=== PATIENT | female | born 1990 | race Caucasian/White ===

== ENCOUNTER → 2016-07-28 | Outpatient (REF) | payer OTHER ==
[2016-07-28 19:03] LABS: ALBUMIN 4.4 GM/DL (3.2-5.2); ALBUMIN/GLOBULIN RATIO 1.33 (1.00-1.93); ALKALINE PHOSPHATASE 67 U/L (45-117); ALT/SGPT 20 U/L (12-78); ANION GAP 7 MEQ/L (8-16); AST/SGOT 14 U/L (15-37); BILIRUBIN,TOTAL 0.4 MG/DL (0.2-1.0); BLOOD UREA NITROGEN 13 MG/DL (7-18); CALCIUM LEVEL 8.9 MG/DL (8.5-10.1); CARBON DIOXIDE LEVEL 27 MEQ/L (21-32); CHLORIDE LEVEL 105 MEQ/L (98-107); CHOLESTEROL LEVEL 125 MG/DL (<200); CREATININE FOR GFR 0.82 MG/DL (0.55-1.02); FREE T4 0.87 NG/DL (0.76-1.46); GLOMERULAR FILTRATION RATE > 60.0 (>60); GLUCOSE, FASTING 77 MG/DL (70-105); POTASSIUM SERUM 4.5 MEQ/L (3.5-5.1); SODIUM LEVEL 139 MEQ/L (136-145); TOTAL PROTEIN 7.7 GM/DL (6.4-8.2); TRIGLYCERIDES LEVEL 51 MG/DL (<150)
== END ==
LOC: M LAB REF 17:53
PROVIDERS: ATTEND Nurse Practitioner Family
DX: E04.0 Nontoxic diffuse goiter (principal); Z13.29 Encounter for screening for other suspected endocrine disorder; Z13.220 Encounter for screening for lipoid disorders

== ENCOUNTER → 2016-11-23 | Outpatient (CLI) | payer MEDICAID | LOC: M LAB 13:32 | PROVIDERS: ATTEND Advanced Practice Midwife | DX: Z36 Encounter for antenatal screening of mother (principal); Z13.79 Encounter for other screening for genetic and chromosomal anomalies ==

== ENCOUNTER → 2016-11-26 | Outpatient (CLI) | payer MEDICAID ==
--- NOTE | 2016-11-26 13:08 | REP ---
Obstetric ultrasound for anatomy: There is a single intrauterine gestation in a breech presentation. There is motion and cardiac activity. The heart rate is 141 beat per minute. The placenta is anterior and extends into the lower uterine segment. The inferior margin of the placenta is 3.6 cm above the internal cervical os. There is no placenta previa. The cervix measures through 0.6 cm in length. By today's ultrasound the gestational age is 20 weeks 1 day with an ASHLEY of 04/14/2017. The LMP is unknown. weight is 372 grams (0 pounds, 13 ounces). This is the 67th percentile for 20 weeks 1 day. The following anatomic structures are identified and are unremarkable: Intracranial lateral ventricles, cerebellum, cisterna magna, choroid plexus, facial profile, lungs, four-chamber heart, cardiac right and left ventricular outflow tracts, diaphragm, stomach, cord insertion, three-vessel cord, kidneys, bladder and upper lower extremities. Suboptimally demonstrated because of position is the spine. A followup study dedicated to the spine might be considered. Otherwise, there are no anomalies. Signed by Patel Suresh MD 11/26/2016 01:00 P
== END ==
LOC: M SMT 10:03
PROVIDERS: ATTEND Specialist
DX: Z36 Encounter for antenatal screening of mother (principal); Z3A.20 20 weeks gestation of pregnancy

== ENCOUNTER 2016-12-19 15:45 | Emergency (ER) | payer MEDICAID ==
[~2016-12-19] VITALS: Ht 160 cm; Wt 70.9 kg
[2016-12-19] MEDS ORDERED: LIDOCAINE W/EPINEPHRINE 1% 20ML VIAL As Ordered ONE (17:32)
[2016-12-19] MEDS ORDERED: LIDOCAINE W/EPINEPHRINE 1% 20ML VIAL SC ONE (18:15)
[2016-12-19 18:35] VITALS: BP 102/72
== END 2016-12-19 18:36 | disposition home or self-care (01) ==
LOC: M ED 15:45
DX: O9A.212 Injury, poisoning and certain other consequences of external causes complicating pregnancy, second trimester (principal); S61.411A Laceration without foreign body of right hand, initial encounter; Z3A.24 24 weeks gestation of pregnancy; W26.0XXA Contact with knife, initial encounter; Y92.099 Unspecified place in other non-institutional residence as the place of occurrence of the external cause; Y93.89 Activity, other specified; Y99.9 Unspecified external cause status

== ENCOUNTER → 2017-01-15 | Outpatient (CLI) | payer MEDICAID, OTHER ==
--- NOTE | 2017-01-15 14:02 | REP ---
Obstetric sonography: History: Supervision of , followup anatomy. Findings: Scanning through the gravid uterus demonstrates a viable single intrauterine gestation in a cephalic lie. motion is observed and heart rate is recorded at 158 beats per minute. An anterior grade 0 placenta is seen without evidence of previa. Amniotic fluid is subjectively normal. Closed cervical length is 3.7 cm. No extrauterine abnormality is observed. There has been appropriate interval growth. No anomaly is seen. The following anatomic structures are identified and felt to be sonographically unremarkable today: cranium, choroid plexus, cavum, cerebellum and posterior fossa, face and profile, lungs, left ventricular outflow tract view, diaphragm, left-sided stomach, abdominal wall cord insertion, three-vessel umbilical cord, kidneys and bladder, spine, and upper and lower extremities. Biometry chart: BPD 6.9 cm 27 weeks 5 days Head circumference 25.9 cm 28 weeks 1 day Abdominal circumference 23.4 cm 27 weeks 5 days Femur length 5.2 cm 27 weeks 5 days Humeral length 4.9 cm 28 weeks 5 days HC/AC ratio normal 1.11. Cephalic index normal 0.73. Estimated weight 1125 grams, 2 pounds 7 ounces, 54th percentile for 27 weeks 2 days. SD ratio in the umbilical cord artery by Doppler normal 2.84. ALEX normal 15.3 cm. Impression: Viable single intrauterine gestation at 28 weeks 0 days by today's composite sonographic criteria. Expected gestational age estimate based on prior sonography is 27 weeks 2 days. ASHLEY by prior sonography April 14, 2017. In conjunction with the prior study, anatomic survey is felt to be complete. Signed by Tyrone Nicholson MD 01/15/2017 03:02 P
== END ==
LOC: M RAD 12:32
PROVIDERS: ATTEND Advanced Practice Midwife
DX: Z34.83 Encounter for supervision of other normal pregnancy, third trimester (principal)

== ENCOUNTER → 2017-01-25 | Outpatient (CLI) | payer OTHER ==
[2017-01-25 20:05] LABS: BASO # 0.1 10^3/uL (0.0-0.2); BASO % 0.3 % (0.0-1.0); EOS # 0.2 10^3/uL (0.0-0.50); EOS % 1.3 % (0.0-3.0); IMMATURE GRANULOCYTE % 1.4 % (0-0); LYMPH # 2.9 10^3/uL (1.5-6.5); LYMPH % 16.3 % (24.0-44.0); MEAN CORPUSCULAR HEMOGLOBIN 30.2 pg (27.0-33.0); MEAN CORPUSCULAR HGB CONC 33.3 g/dl (32.0-36.5); MEAN CORPUSCULAR VOLUME 90.5 fl (80.0-96.0); MONO % 5.6 % (0.0-5.0); NEUTROPHILS # 13.2 10^3/uL (1.8-7.7); NEUTROPHILS % 75.1 % (36.0-66.0); PLATELET COUNT, AUTOMATED 259 10^3/uL (150-450); RED CELL DISTRIBUTION WIDTH 12.9 % (11.5-14.5); WHITE BLOOD COUNT 17.5 10^3/uL (4.0-10.0)
== END ==
LOC: M SMT 13:23
PROVIDERS: ATTEND Advanced Practice Midwife
DX: Z36 Encounter for antenatal screening of mother (principal)
CPT/HCPCS: 36415; 82950; 85025; 86850; 86900; 86901; J2790

== ENCOUNTER → 2017-03-19 | Outpatient (REF) | payer OTHER | LOC: M LAB REF 17:16 | PROVIDERS: ATTEND Advanced Practice Midwife | DX: Z34.83 Encounter for supervision of other normal pregnancy, third trimester (principal) ==

== ENCOUNTER 2017-04-10 17:40 | Outpatient (CLI) | payer OTHER ==
[~2017-04-10] VITALS: Ht 160 cm; Wt 73.6 kg
[2017-04-10 17:59] VITALS: BP 118/68
[2017-04-10] MEDS ORDERED: RANI15TA PO (18:05)
[2017-04-10] MEDS ORDERED: ZOFR20TA PO (18:05)
[2017-04-10] MEDS ORDERED: ONDANSETRON 4 MG ORAL DISINTEGRATING TAB (S0181) PO PRN (20:00)
== END 2017-04-10 21:15 | disposition home or self-care (01) ==
LOC: M LDO 17:40
PROVIDERS: ATTEND Specialist
DX: O47.1 False labor at or after 37 completed weeks of gestation (principal); Z3A.39 39 weeks gestation of pregnancy; Z88.8 Allergy status to other drugs, medicaments and biological substances

== ENCOUNTER 2017-04-11 05:33 | Inpatient (IN) | payer OTHER ==
[2017-04-11] VITALS (49 sets, daily range): BP systolic 99–150; BP diastolic 56–82
[~2017-04-11] VITALS: Ht 160 cm; Wt 74.0 kg
[~2017-04-11 05:33] MED LIST: RANI15TA PO; ZOFR20TA PO
[2017-04-11] MEDS ORDERED: LACTATED RINGER'S 1000 ML IV STA (06:25)
[2017-04-11] MEDS ORDERED: LR 1,000 ML IV SCH (06:25)
[2017-04-11 06:36] LABS: MEAN CORPUSCULAR HEMOGLOBIN 29.3 pg (27.0-33.0); MEAN CORPUSCULAR HGB CONC 34.5 g/dl (32.0-36.5); MEAN CORPUSCULAR VOLUME 84.8 fl (80.0-96.0); PLATELET COUNT, AUTOMATED 218 10^3/uL (150-450); RED CELL DISTRIBUTION WIDTH 12.6 % (11.5-14.5); WHITE BLOOD COUNT 13.8 10^3/uL (4.0-10.0)
[2017-04-11] MEDS ORDERED: FENTANYL 2MCG/ML ROPIVACAINE 0.2% IN 0.9% NACL 200ML IVBAG As Ordered ONE (07:31)
[2017-04-11] MEDS ORDERED: ONDANSETRON 4MG/2ML VIAL (J2405) IV PRN (09:45)
[2017-04-11] MEDS ORDERED: EPIDURAL/PCA KEYS XX PRN (09:45)
[2017-04-11] MEDS ORDERED: NALOXONE INJ 0.4 MG/1 ML VIAL (J2310) IV PRN (09:45)
[2017-04-11] MEDS ORDERED: FENTANYL/ROPIVACAINE/NACL BAG 200 ML EPIDURAL SCH (09:45)
[2017-04-11] MEDS ORDERED: REFRIGERATOR IV KEYS XX PRN (09:45)
[2017-04-11] MEDS ORDERED: EPIDURAL COMMENT XX SCH (09:45)
[2017-04-11] MEDS ORDERED: diphenhydrAMINE INJ 50MG/ML VIAL (J1200) IV PRN (09:45)
[2017-04-11] MEDS ORDERED: ePHEDrine SULFATE 25 MG/5 ML(5MG/ML) SYRINGE IV PRN (09:45)
[2017-04-11] MEDS ORDERED: LACTATED RINGER'S 1000 ML IV PRN (09:45)
--- NOTE | 2017-04-11 10:20 | HPE ---
DATE OF ADMISSION: 04/11/2017 A 27-year-old G2, P0-0-1-0 female at 39-3/7 weeks' gestation by 6-week ultrasound, estimated date of confinement (EDC) 04/15/2017, presents for having contractions every 3-4 minutes for the last several hours. They increase in intensity. She denies vaginal bleeding or loss of fluid. COURSE: The patient initiated care at 6 weeks' gestation on 08/19/2016. Her first-trimester blood pressure was 118/70. Weight 145 pounds. Her course was unremarkable. MEDICAL HISTORY: Anxiety. SURGICAL HISTORY: None. ALLERGIES: PROZAC, BACTRIM. SOCIAL HISTORY: The patient lives at [place]. The patient denies cigarettes, alcohol, or drug use. FAMILY HISTORY: Noncontributory. PHYSICAL EXAMINATION: Blood pressure 118/74. She appears uncomfortable. HEAD AND NECK EXAMINATION: Normal. LUNGS: Clear. HEART: Regular rate and rhythm. ABDOMEN: Nontender, gravid. heart tones category 1. STERILE VAGINAL EXAMINATION: 4 cm, 100%, -2 station, vertex, soft, contractions every 3-4 minutes. EXTREMITIES: Nontender. LABORATORIES: Blood type is O negative, rubella immune, rapid plasma reagin (RPR) nonreactive. Hepatitis B and C negative. HIV negative. Group B streptococcus (GBS) negative on 03/19/2017. ASSESSMENT: A 27-year-old G2, P0-0-1-0 female at 39-3/7 weeks' gestation presents in labor. The patient is admitted on 04/11/2017.
[2017-04-11] MEDS ORDERED: OXYTOCIN 30 UNITS IN 0.9% NaCl 500ML IV BAG (J2590) As Ordered ONE (13:45)
[2017-04-11] MEDS ORDERED: OXYTOCIN DRIP 30 UNITS in APPROPRIATE DILUENT 1 EA IV SCH (14:53)
[2017-04-11] MEDS ORDERED: DIBUCAINE 1% OINTMENT 30GM TOP PRN (15:00)
[2017-04-11] MEDS ORDERED: ANUSOL HC CREAM 30GM TOP PRN (15:00)
[2017-04-11] MEDS ORDERED: METHYLERGONOVINE MALEATE 0.2 MG TAB PO PRN (15:00)
[2017-04-11] MEDS ORDERED: RHOGAM 300 MCG (1500 IU) INJ (J2790) IM SCH (15:00)
[2017-04-11] MEDS ORDERED: MOM 30ML SUSPENSION UDC PO PRN (15:00)
[2017-04-11] MEDS ORDERED: IBUPROFEN 800 MG TAB PO PRN (15:00)
[2017-04-11] MEDS ORDERED: DOCUSATE SODIUM 100 MG CAP PO PRN (15:00)
[2017-04-11] MEDS ORDERED: MEASLES,MUMPS,RUBELLA VACCINE INJ (MMR-II) (90707) SC SCH (15:00)
--- NOTE | 2017-04-11 15:04 | DNPDOC ---
[facility] Delivery Note Delivery Note DATE OF DELIVERY: 04/11/2017 PREDELIVERY DIAGNOSIS: 39-3/7 weeks' gestation and labor. POST DELIVERY DIAGNOSIS: Delivered. PROCEDURE: Spontaneous vaginal delivery. PERFORMANCE TEST ENGINEER: Jacinta De Anda ANESTHESIA: Epidural. ESTIMATED BLOOD LOSS: 100 mL. FINDINGS: 6 pound 0 ounce male infant, Score 9/9, no nuchal cord. DELIVERY SUMMARY: Patient is a 27-year-old 2 now para 1 -0 -1-1 who was admitted to labor and delivery for uterine contractions starting @ 0100. She utilized an epidural for labor coping. Artificial rupture of membranes for moderate meconium-stained fluid at 0928. NICU was notified and requested to attend delivery. Fully dilated, 1348. Viable male delivered JOAO at 1428, suctioned by Dr. Nascimento at delivery for scant amount meconium-stained fluid. Cord doubly clamped and cut and infant went to warmer for further evaluation. Apgars were 9 and 9. Placenta Birch intact with a three-vessel cord at 1432. Marginal cord insertion was noted. Fundus firmed. Bleeding controlled with massage and IV Pitocin bolus. Estimated blood loss 100 mL. Cervix, vagina and perineum inspected. Bilateral labial abrasions were noted and repaired with 3-0 Vicryl Rapide and a small first-degree vaginal laceration was repaired with the same suture. Infant weight 2730 g, 6 lbs. 0 oz. Parents are naming their son El. Sponge, sharp and instrument count were correct at the close of the procedure Jacinta De Anda CNM Apr 11, 2017 15:04
[2017-04-12] MEDS: ACETAMINOPHEN 500 MG TAB PO PRN ×3 (01:42→16:00)
--- NOTE | 2017-04-12 06:45 | IPNPDOC ---
Text Note Date of Service The patient was seen on 04/12/17. NOTE Feels well. . Adequate pain management. Voiding 98.7, 118/75 Breasts soft, nipples intact Fundus firm, NT, down 2 FB Lochia rubra light without odor Perineum well approximated without edema Legs negative A: PPD #1 P: Routine care. Anticipate D/C in am VS,Fishbone, I+O VS, Fishbone, I+O Vital Signs Date Time Temp Pulse Resp B/P (MAP) Pulse Ox O2 Delivery O2 Flow Rate FiO2 04/11/17 18:00 98.7 69 18 118/75 (89) Jacinta De Anda CNM Apr 12, 2017 06:45
[2017-04-12] MEDS: PRENATAL VITAMINS CHEWABLE TABLET PO SCH (08:31)
[2017-04-12 18:00] VITALS: BP 124/77
[2017-04-13 06:17] VITALS: BP 152/75
[2017-04-13] MEDS: PRENATAL VITAMINS CHEWABLE TABLET PO SCH (07:17)
[2017-04-13] MEDS: ACETAMINOPHEN 500 MG TAB PO PRN (07:18)
[2017-04-13] MEDS ORDERED: IBUP-1114 PO (07:52)
[2017-04-13] MEDS ORDERED: PRENTAB9 PO (07:52)
[2017-04-13] MEDS ORDERED: ACET50TA PO (07:52)
== END 2017-04-13 12:45 | disposition home or self-care (01) | DRG 560 ==
LOC: M LDO 05:33 → M LDI 06:16 → M OBS 17:16
PROVIDERS: ADMIT Specialist; ATTEND Specialist
PROC: 10E0XZZ Delivery of Products of Conception, External Approach (ICD-10-PCS; principal; 2017-04-11)
PROC: 10907ZC Drainage of Amniotic Fluid, Therapeutic from Products of Conception, Via Natural or Artificial Opening (ICD-10-PCS; 2017-04-11)
PROC: 0HQ9XZZ Repair Perineum Skin, External Approach (ICD-10-PCS; 2017-04-11)
PROC: 30233S1 Transfusion of Nonautologous Globulin into Peripheral Vein, Percutaneous Approach (ICD-10-PCS; 2017-04-12)
DX: O77.0 Labor and delivery complicated by meconium in amniotic fluid (principal); O70.0 First degree perineal laceration during delivery; Z37.0 Single live birth; Z3A.39 39 weeks gestation of pregnancy; Z88.1 Allergy status to other antibiotic agents; Z88.8 Allergy status to other drugs, medicaments and biological substances

== ENCOUNTER → 2018-09-24 | Outpatient (CLI) | payer OTHER ==
[~2018-09-24] MED LIST changes: +IBUP-1114 PO; +MAPA500T2 PO; +PRENTAB9 PO; -ZOFR20TA PO; +ZOFR4TAB16 PO
[2018-09-24 09:49] LABS: BASO % 0.4 % (0.0-1.0); EOS # 0.2 10^3/uL (0.0-0.50); EOS % 1.8 % (0.0-3.0); HEMATOCRIT 38.1 % (36.0-47.0); HEMOGLOBIN 13.1 g/dl (12.0-15.5); LYMPH # 2.6 10^3/uL (1.5-6.5); LYMPH % 22.9 % (24.0-44.0); MEAN CORPUSCULAR HEMOGLOBIN 30.7 pg (27.0-33.0); MEAN CORPUSCULAR HGB CONC 34.4 g/dl (32.0-36.5); MEAN CORPUSCULAR VOLUME 89.2 fl (80.0-96.0); MONO # 0.6 10^3/uL (0.0-0.8); MONO % 5.3 % (0.0-5.0); NEUTROPHILS # 7.8 10^3/uL (1.8-7.7); NEUTROPHILS % 69.2 % (36.0-66.0); PLATELET COUNT, AUTOMATED 223 10^3/uL (150-450); RED BLOOD COUNT 4.27 10^6/uL (4.00-5.40); WHITE BLOOD COUNT 11.3 10^3/uL (4.0-10.0)
[2018-09-24 12:23] LABS: CHLAMYDIA DNA AMPLIFICATION NEGATIVE (NEGATIVE); GC DNA AMPLIFICATION NEGATIVE (NEGATIVE)
[2018-09-26 09:57] LABS: HIV 1&2 SCREEN CENTAUR NEGATIVE (NEGATIVE); RUBELLA IgG QUALITATIVE IMMUNE (IMMUNE)
== END ==
LOC: M LAB 09:23
PROVIDERS: ATTEND Advanced Practice Midwife
DX: Z34.81 Encounter for supervision of other normal pregnancy, first trimester (principal); Z3A.09 9 weeks gestation of pregnancy

== ENCOUNTER → 2018-09-30 | Outpatient (CLI) | payer OTHER | LOC: M SMT 10:22 | PROVIDERS: ATTEND Obstetrics & Gynecology | DX: Z34.81 Encounter for supervision of other normal pregnancy, first trimester (principal) ==

== ENCOUNTER → 2018-11-08 | Outpatient (CLI) | payer OTHER ==
--- NOTE | 2018-11-08 22:24 | REP ---
Clinical: Anatomical evaluation. Comparison: None . Findings: Examination demonstrates a single live intrauterine in variable presentation. motion is identified by technologist. Placenta is noted posterior and grade zero without evidence for placenta previa or abruption. Amniotic fluid volume is normal. Cervix measures 4.7 cm in length and appears closed. No evidence for nuchal cord. Gestational age by LMP 19 weeks 4-day with ASHLEY 03/31/2019 . Gestational age by current measurements 18 weeks 1 day with ASHLEY 04/10/2019 . FHR equals 149 beats per minute. BPD 3.7 cm 17 weeks 2 days HC 15.1 cm 18 weeks 1 day AC 12.9 cm 18 weeks 3 days FL 2.8 cm 18 weeks 3 days HL 2.7 cm 18 weeks 4-day HC/AC ratio 1.18 Estimated weight at 237 grams ( 55th percentile). Anatomical assessment demonstrates normal structures including cranium, choroid plexus, cavum, cerebellum/posterior fossa, facial features, lungs, four-chamber heart/ventricular outflow tracts, diaphragm, stomach, cord insertion/three-vessel cord, kidneys/bladder, spine, and extremities. Impression: Single live intrauterine in variable presentation demonstrating appropriate interval growth. Anatomical assessment is complete and normal. Electronically Signed by Porter Ortega MD 11/08/2018 10:15 P
== END ==
LOC: M RAD 13:55
PROVIDERS: ATTEND Advanced Practice Midwife
DX: Z34.82 Encounter for supervision of other normal pregnancy, second trimester (principal); Z36.89 Encounter for other specified antenatal screening; Z3A.19 19 weeks gestation of pregnancy

== ENCOUNTER 2018-12-26 19:46 | Emergency (ER) | payer OTHER ==
[~2018-12-26] VITALS: Ht 160 cm; Wt 60.5 kg
[2018-12-27] MEDS ORDERED: NS 1,000 ML IV ONE (00:15)
[2018-12-27] MEDS ORDERED: CLINDAMYCIN 300 MG in APPROPRIATE DILUENT 1 EA IV ONE (00:15)
[2018-12-27] MEDS ORDERED: METOCLOPRAMIDE INJ 10MG/2ML VIAL (J2765) IV ONE (00:15)
[2018-12-27 00:35] LABS: ALBUMIN 3.6 GM/DL (3.2-5.2); ALT/SGPT 15 U/L (12-78); BILIRUBIN,DIRECT 0.2 MG/DL (0.0-0.2); BILIRUBIN,TOTAL 0.7 MG/DL (0.2-1.0); BLOOD UREA NITROGEN 7 MG/DL (7-18); CALCIUM LEVEL 9.3 MG/DL (8.5-10.1); CARBON DIOXIDE LEVEL 27 MEQ/L (21-32); CHLORIDE LEVEL 104 MEQ/L (98-107); CREATININE FOR GFR 0.63 MG/DL (0.55-1.30); GLOMERULAR FILTRATION RATE > 60.0 (>60); GLUCOSE, FASTING 80 MG/DL (70-100); LIPASE 66 U/L (73-393); SODIUM LEVEL 137 MEQ/L (136-145); TOTAL PROTEIN 7.8 GM/DL (6.4-8.2)
[2018-12-27 00:40] LABS: BASO % 0.2 % (0.0-1.0); EOS % 0.2 % (0.0-3.0); HEMATOCRIT 41.6 % (36.0-47.0); HEMOGLOBIN 14.5 g/dl (12.0-15.5); LYMPH # 1.6 10^3/uL (1.5-6.5); LYMPH % 9.5 % (24.0-44.0); MEAN CORPUSCULAR HEMOGLOBIN 30.5 pg (27.0-33.0); MEAN CORPUSCULAR HGB CONC 34.9 g/dl (32.0-36.5); MEAN CORPUSCULAR VOLUME 87.6 fl (80.0-96.0); MONO # 0.9 10^3/uL (0.0-0.8); MONO % 5.3 % (0.0-5.0); NEUTROPHILS # 14.5 10^3/uL (1.8-7.7); NEUTROPHILS % 84.2 % (36.0-66.0); PLATELET COUNT, AUTOMATED 278 10^3/uL (150-450); RED BLOOD COUNT 4.75 10^6/uL (4.00-5.40); WHITE BLOOD COUNT 17.2 10^3/uL (4.0-10.0)
[2018-12-27 02:12] VITALS: BP 118/77
[2018-12-27] MEDS ORDERED: REGL10TA6 PO (02:16)
== END 2018-12-27 02:19 | disposition home or self-care (01) ==
LOC: M ED 19:46
DX: O99.89 Other specified diseases and conditions complicating pregnancy, childbirth and the puerperium (principal); R11.10 Vomiting, unspecified; K04.7 Periapical abscess without sinus; Z3A.26 26 weeks gestation of pregnancy; Z79.899 Other long term (current) drug therapy; Z88.8 Allergy status to other drugs, medicaments and biological substances
CPT/HCPCS: 80048; 80076; 83605; 83690; 85025; 96365; 99284; J2765

== ENCOUNTER → 2019-01-13 | Outpatient (CLI) | payer OTHER ==
[~2019-01-13] MED LIST changes: +REGL10TA6 PO
[2019-01-13 18:05] LABS: HEMATOCRIT 36.6 % (36.0-47.0); HEMOGLOBIN 12.7 g/dl (12.0-15.5); MEAN CORPUSCULAR HEMOGLOBIN 31.4 pg (27.0-33.0); MEAN CORPUSCULAR HGB CONC 34.7 g/dl (32.0-36.5); MEAN CORPUSCULAR VOLUME 90.4 fl (80.0-96.0); PLATELET COUNT, AUTOMATED 262 10^3/uL (150-450); RED BLOOD COUNT 4.05 10^6/uL (4.00-5.40); WHITE BLOOD COUNT 13.8 10^3/uL (4.0-10.0)
== END ==
LOC: M LRY 14:04
PROVIDERS: ATTEND Advanced Practice Midwife
DX: Z34.82 Encounter for supervision of other normal pregnancy, second trimester (principal); Z36.89 Encounter for other specified antenatal screening
CPT/HCPCS: 36415; 82950; 85027; 86850; J2790

== ENCOUNTER → 2019-03-10 | Outpatient (REF) | payer OTHER | LOC: M LAB REF 16:57 | PROVIDERS: ATTEND Advanced Practice Midwife | DX: Z36.89 Encounter for other specified antenatal screening (principal); Z3A.00 Weeks of gestation of pregnancy not specified ==

== ENCOUNTER → 2019-03-22 | Outpatient (CLI) | payer OTHER | LOC: M SMT 09:52 | PROVIDERS: ATTEND Advanced Practice Midwife | DX: Z34.83 Encounter for supervision of other normal pregnancy, third trimester (principal); Z36.89 Encounter for other specified antenatal screening ==

== ENCOUNTER 2019-04-07 18:20 | Inpatient (IN) | payer OTHER ==
[~2019-04-07] VITALS: Ht 160 cm; Wt 71.0 kg
[2019-04-07] MEDS ORDERED: ZANT150T40 PO (18:41)
[2019-04-07] MEDS ORDERED: TUMS750C5 PO (18:41)
[2019-04-07] MEDS ORDERED: LACTATED RINGER'S 1000 ML IV STA (19:00)
[2019-04-07] MEDS ORDERED: miSOPROStol 50 MCG 1/2 TAB (S0191) PO SCH (19:00)
--- NOTE | 2019-04-07 19:14 | HPEPDOC ---
Obstetrical History & Physical General Date of Admission Apr 07, 2019 at 18:20 History of Present Illness Chief Complaint: Induction of labor Information Provided By: Patient Age: 29 : 3 Term: 1 Pre-term: 0 Abortions: 1 Livin Care Care: Good Care Dating Final EDC: Apr 05, 2019 Final EDC by: LMP EGA at Admission: 40 (+2) Antepartum Course Height (inches): 63 Pre- weight (lbs.): 106 Admission Weight (lbs.): 152 Past Medical History Past Obstetrical History : Past Obstetrical History: Primgravida (2017) Type of Delivery: Spontaneous Vaginal Del. 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 Past Medical History Medical History Lichen sclerosus Surgical History: Denies/None Family History Significant Family History: Cancer (:), Hypertension Social History Marital Status: Family situation: Spouse/partner home Psychosocial History: No pertinent psych hx * Smoker: current smoker Alcohol: Denies Drugs: denies Abuse Violence Screening Have you been hit/kicked/slapp: No Have you been sexually assault: No Imunizations Tdap status: current Allergies Coded Allergies: fluoxetine (Verified Allergy, Intermediate, hives, 12/26/18) sulfamethoxazole (Verified Allergy, Unknown, 04/07/19) trimethoprim (Verified Allergy, Unknown, 04/07/19) Medications Scheduled Ranitidine Hcl (Zantac) 150 Mg Tablet, 1 TAB PO BID Scheduled PRN Calcium Carbonate (Tums) 300 Mg Tab.chew, 750 MG PO Q4-6HP PRN for HEARTBURN/INDIGESTION Physical Examination Physical Examination GENERAL: Alert and oriented times three. BREAST: . ABDOMEN: Gravid and non-tender to touch. FETUS: Is vertex (VTX) by sterile vaginal examination (SVE), fetus is vertex (VTX) by Zane. HEART RATE: Regular rate and rhythm. LUNGS: Clear to auscultation (CTA). EXTREMITIES: No edema. No clonus. Deep tendon reflexes (DTRs) + 2. Laboratory Data [facility] Laboratory Tests 2 04/07/19 18:37: Serology Scanned Report Hepatitis B Testing Pertinent Laboratoy Data Blood Type: O- RBC Antibody Screen: Negative HIV: Negative Hepatitis B: Negative Hepatitis C: Negative Rapid Plasma Reagin: Nonreactive Rubella: Immune Chlamydia/Gonorrhea: Negative Group B Streptococcus: Negative Diag/Inter Therapy Panorama low risk female Anatomy Ultrasound Ultrasound Date: Nov 08, 2018 Placenta Location: Posterior Normal Anatomy: Yes Placenta Previa: No Estimated Weight (grams): 237 Other Ultrasounds 09/02/2018, dating 8 weeks 5 days Steroid Therapy Steroid Therapy: No Vaginal Examination Dilation: 1cm Effacement: 50% Station: -3 Cervical Consistency: Medium Cervical Position: Posterior Presentation: Cephalic presentation Assessment Heart Rate (FHR): 125 Variability: Moderate Accelerations: Positive Decelerations: None Tocometer Contractions: No Assessment/Plan Assessment Carissa is a 29-year-old (G) 3 para (P) 1 -0 -1-1 at 40 + 2 weeks by 8-week ultrasound. Presents to Labor and Delivery (L&D), elective induction of labor at term. She denies regular contractions, loss of fluid or bleeding. Fetus is active Plan Admit and orient. 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 Melendrez Diet: Regular. Group B Streptococcus (GBS), negative. Labs and intravenous (IV) per unit protocol. Counseled on misoprostol, Pitocin and induction of labor (IOL). Lactated Ringers (LR): Bolus 500 mL, then saline lock. Patient plans an epidural Anticipate, normal spontaneous vaginal delivery. C-S as appropriate. Jacinta De Anda CNM Apr 07, 2019 19:13
[2019-04-07 19:39] LABS: HEMATOCRIT 34.2 % (36.0-47.0); HEMOGLOBIN 11.4 g/dl (12.0-15.5); MEAN CORPUSCULAR HGB CONC 33.3 g/dl (32.0-36.5); PLATELET COUNT, AUTOMATED 249 10^3/uL (150-450); RED BLOOD COUNT 3.93 10^6/uL (4.00-5.40); WHITE BLOOD COUNT 14.8 10^3/uL (4.0-10.0)
[2019-04-07 19:43] VITALS: BP 117/69
[2019-04-07 20:44] VITALS: BP 115/68
[2019-04-07 21:42] VITALS: BP 118/62
[2019-04-07 23:13] VITALS: BP 110/58
[2019-04-08] VITALS (99 sets, daily range): BP systolic 87–136; BP diastolic 46–80
[2019-04-08] MEDS: LR 1,000 ML IV SCH ×3 (00:10→14:42)
[2019-04-08] MEDS: OXYTOCIN DRIP 30 UNITS in IV 1 EA IV SCH ×2 (01:31→08:39)
--- NOTE | 2019-04-08 02:45 | IPNPDOC ---
Text Note Date of Service The patient was seen on 04/08/19. NOTE Remains comfortable Pitocin @ 2mu, recently decreased from 4 due to tachysystole. Cat I tracing SVE 260/-3 Cooks catheter placed, inflated 60/40. VS,Fishbone, I+O VS, Fishbone, I+O Laboratory Tests 04/07/19 19:26 Vital Signs Date Time Temp Pulse Resp B/P (MAP) Pulse Ox O2 Delivery O2 Flow Rate FiO2 04/08/19 01:31 53 16 91/50 (64) 04/08/19 01:12 98.9 Jacinta De Anda CNM Apr 08, 2019 02:45
[2019-04-08] MEDS ORDERED: BUTORPHANOL 2 MG/ML INJ (J0595) IV ONE (04:30)
[2019-04-08] MEDS ORDERED: PROMETHAZINE INJ 25 MG/ML VIAL (J2550) IV ONE (04:30)
[2019-04-08] MEDS ORDERED: FENTANYL 2MCG/ML ROPIVACAINE 0.2% IN 0.9% NACL 100ML IVBAG As Ordered ONE (13:18)
[2019-04-08] MEDS ORDERED: ePHEDrine SULFATE 25 MG/5 ML(5MG/ML) SYRINGE As Ordered ONE (14:16)
[2019-04-08] MEDS ORDERED: FENTANYL/ROPIVACAINE/NACL BAG 100 ML EPIDURAL SCH (14:30)
[2019-04-08] MEDS ORDERED: LACTATED RINGER'S 1000 ML IV PRN (14:30)
[2019-04-08] MEDS ORDERED: REFRIGERATOR IV KEYS XX PRN (14:30)
[2019-04-08] MEDS ORDERED: EPIDURAL/PCA KEYS XX PRN (14:30)
[2019-04-08] MEDS ORDERED: diphenhydrAMINE INJ 50MG/ML VIAL (J1200) IV PRN (14:30)
[2019-04-08] MEDS ORDERED: NALOXONE INJ 0.4 MG/1 ML VIAL (J2310) IV PRN (14:30)
[2019-04-08] MEDS ORDERED: EPIDURAL COMMENT XX SCH (14:30)
[2019-04-08] MEDS ORDERED: ONDANSETRON 4MG/2ML VIAL (J2405) IV PRN ×2 (14:30→21:15)
[2019-04-08] MEDS: ePHEDrine SULFATE 25 MG/5 ML(5MG/ML) SYRINGE IV PRN ×2 (14:35→14:37)
[2019-04-08] MEDS ORDERED: DIBUCAINE 1% OINTMENT 30GM TOP PRN (21:15)
[2019-04-08] MEDS ORDERED: ACETAMINOPHEN 500 MG TAB PO PRN (21:15)
[2019-04-08] MEDS ORDERED: IBUPROFEN 600 MG TAB PO PRN (21:15)
[2019-04-08] MEDS ORDERED: MEASLES,MUMPS,RUBELLA VACCINE INJ (MMR-II) (90707) SC SCH (21:15)
[2019-04-08] MEDS ORDERED: OXYTOCIN DRIP 30 UNITS in IV 1 EA IV ONE (21:15)
[2019-04-08] MEDS ORDERED: RHOGAM 300 MCG (1500 IU) INJ (J2790) IM SCH (21:15)
[2019-04-08] MEDS ORDERED: ACETAMINOPHEN TAB 650MG DOSE (2X325MG) PO PRN (21:15)
[2019-04-08] MEDS ORDERED: DOCUSATE SODIUM 100 MG CAP PO PRN (21:15)
[2019-04-08] MEDS ORDERED: METHYLERGONOVINE MALEATE 0.2 MG TAB PO PRN (21:15)
[2019-04-09] MEDS: IBUPROFEN 800 MG TAB PO PRN ×2 (05:47→13:54)
[2019-04-09 06:00] VITALS: BP 121/56
[2019-04-09] MEDS: PRENATAL VITAMINS CHEWABLE TABLET PO SCH (10:30)
[2019-04-09 18:00] VITALS: BP_SYST 109; BP_SYST 124; BP_DIAS 53; BP_DIAS 62
--- NOTE | 2019-04-09 21:05 | DN ---
DATE OF DELIVERY: 04/08/2019 PREDELIVERY DIAGNOSIS: 40-2/7 weeks gestation, labor induction. POSTDELIVERY DIAGNOSIS: Delivered. PROCEDURE: Spontaneous vaginal delivery. HEARING EXAMINER: Renny Newberry MD ANESTHESIA: Epidural. ESTIMATED BLOOD LOSS: 300 mL. FINDINGS: 7 pound 8 ounce female infant. scores 6 and 9. DELIVERY SUMMARY: After a 45 minute second stage, the patient had spontaneous delivery of a 7 pound 8 ounce female , scores 6 and 9 under epidural anesthesia. There was no nuchal cord. The shoulders delivered with ease. The cord was doubly clamped and cut. The placenta delivered spontaneously and appeared to be intact. The patient received IV Pitocin immediately after delivery of the placenta. There were no vaginal lacerations present. Sponge counts were correct.
[2019-04-10 06:00] VITALS: BP 110/57
[2019-04-10] MEDS ORDERED: ACET-683 PO (06:18)
[2019-04-10] MEDS ORDERED: IBUP80TA PO (06:18)
[2019-04-10] MEDS: IBUPROFEN 800 MG TAB PO PRN (08:50)
[2019-04-10] MEDS: PRENATAL VITAMINS CHEWABLE TABLET PO SCH (08:50)
== END 2019-04-10 12:30 | disposition home or self-care (01) | DRG 807 ==
LOC: M LDI 18:20 → M OBS 04-08 22:45
PROVIDERS: ADMIT Advanced Practice Midwife; ATTEND Specialist
PROC: 3E0P7GC Introduction of Other Therapeutic Substance into Female Reproductive, Via Natural or Artificial Opening (ICD-10-PCS; 2019-04-07)
PROC: 10E0XZZ Delivery of Products of Conception, External Approach (ICD-10-PCS; principal; 2019-04-08)
DX: O48.0 Post-term pregnancy (principal); Z37.0 Single live birth; Z3A.40 40 weeks gestation of pregnancy; O99.334 Smoking (tobacco) complicating childbirth; F17.210 Nicotine dependence, cigarettes, uncomplicated

== ENCOUNTER → 2020-05-22 | Outpatient (REF) | payer OTHER ==
[~2020-05-22] MED LIST changes: +ACET-683 PO; +IBUP80TA PO; +TUMS750C5 PO; +ZANT150T40 PO
== END ==
LOC: M SFHCPLAZ 16:50
PROVIDERS: ATTEND Advanced Practice Midwife
DX: R30.0 Dysuria (principal)
CPT/HCPCS: 81002; 87088; 87186; G0463

== ENCOUNTER → 2020-08-14 | Outpatient (REF) | payer OTHER | LOC: M SFHCWAGY 12:53 | PROVIDERS: ATTEND Advanced Practice Midwife | DX: Z12.4 Encounter for screening for malignant neoplasm of cervix (principal) ==

== ENCOUNTER → 2022-05-20 | Outpatient (CLI) | payer OTHER ==
[2022-05-20 17:14] LABS: ALKALINE PHOSPHATASE 54 U/L (46-116); ALT/SGPT 85 U/L (7.0-40); AST/SGOT 155 U/L (<34); BILIRUBIN,TOTAL 0.4 MG/DL (0.3-1.2); BLOOD UREA NITROGEN 14 MG/DL (9-23); CARBON DIOXIDE LEVEL 28 MMOL/L (20-31); CHLORIDE LEVEL 104 MMOL/L (98-107); CHOLESTEROL LEVEL 113 MG/DL (<200); CHOLESTEROL RISK RATIO 2.84 (<5); CREATININE FOR GFR 0.85 MG/DL (0.55-1.30); GLOMERULAR FILTRATION RATE > 60.0 (>60); GLUCOSE, FASTING 82 MG/DL (60-100); HDL CHOLESTEROL 39.7 MG/DL (>40); LDL CHOLESTEROL 47.7 MG/DL (<100); NON-HDL-C 73 MG/DL; POTASSIUM SERUM 3.9 MMOL/L (3.5-5.1); SODIUM LEVEL 139 MMOL/L (136-145); TOTAL PROTEIN 6.8 G/DL (5.7-8.2); TRIGLYCERIDES LEVEL 128 MG/DL (<150)
[2022-05-20 17:16] LABS: BASO % 0.5 % (0.0-1.0); EOS # 0.1 10^3/uL (0.0-0.5); EOS % 1.5 % (0.0-3.0); HEMATOCRIT 38.5 % (36.0-47.0); HEMOGLOBIN 12.9 g/dl (12.0-15.5); LYMPH # 2.1 10^3/uL (1.5-5.0); LYMPH % 24.8 % (24.0-44.0); MEAN CORPUSCULAR HEMOGLOBIN 30.7 pg (27.0-33.0); MEAN CORPUSCULAR HGB CONC 33.5 g/dl (32.0-36.5); MEAN CORPUSCULAR VOLUME 91.7 fl (80.0-96.0); MONO # 0.6 10^3/uL (0.0-0.8); MONO % 6.8 % (2.0-8.0); NEUTROPHILS # 5.6 10^3/uL (1.5-8.5); NEUTROPHILS % 66.2 % (36.0-66.0); PLATELET COUNT, AUTOMATED 258 10^3/uL (150-450); WHITE BLOOD COUNT 8.5 10^3/uL (4.0-10.0)
== END ==
LOC: M WUC 14:24
PROVIDERS: ATTEND Nurse Practitioner Family
DX: L70.0 Acne vulgaris (principal)

== ENCOUNTER → 2022-07-20 | Outpatient (REF) | payer OTHER | LOC: M SFHCWAGY 18:29 | PROVIDERS: ATTEND Nurse Practitioner Family | DX: Z12.4 Encounter for screening for malignant neoplasm of cervix (principal); R87.610 Atypical squamous cells of undetermined significance on cytologic smear of cervix (ASC-US) | CPT/HCPCS: 87624; G0123 ==

== ENCOUNTER → 2022-07-30 | Outpatient (REF) | payer OTHER | LOC: M SFHCWAGY 15:45 | PROVIDERS: ATTEND Nurse Practitioner Family | DX: N73.9 Female pelvic inflammatory disease, unspecified (principal); R87.615 Unsatisfactory cytologic smear of cervix | CPT/HCPCS: 87070; 87077; 87186; 87205; G0123; G0463 ==